=== PATIENT | male | born 1960 | race Caucasian/White ===

== ENCOUNTER 2016-09-18 08:46 | Emergency (ER) | payer OTHER ==
[~2016-09-18] VITALS: Ht 188 cm; Wt 64.0 kg
[~2016-09-18 08:46] MED LIST: ASPI81TA82 PO; CEPH500C3 PO
[2016-09-18 08:48] VITALS: BP 144/94; PULSE 97; RESP 15; TEMP 99; O2SAT 98
[2016-09-18] MEDS ORDERED: CLON0.5T PO (09:07)
--- NOTE | 2016-09-18 09:09 | PD ---
HPI Chief Complaint: Injury Time Seen by Provider: 08:57 Travel History International Travel<30 days: No Contact w/Intl Traveler<30days: No Traveled to known affect area: No History of Present Illness HPI 66-year-old male complains of right foot pain, left foot pain, right ankle pain. Patient states that he kicked an animal yesterday with the right foot. Patient states that he tripped and fell and injured his left foot. Patient states that the pain on the right foot localized to the medial aspect of the right ankle and medial aspect of the right foot and the base of the right great toe. Patient states that the pain on the left foot localized around the base of the left great toe. Patient states the pain is sharp pain. Patient denies any pain radiation. On a scale of 1-10 the pain is a 9. Patient states that he is up-to-date with TD booster. PFSH Past Medical History Hx Anticoagulant Therapy: No (Baby ASA daily) Arthritis: No Asthma: No Bipolar Disorder: Yes Depression: Yes Heart Rhythm Problems: No Cardiac Catheterization: No Cardiovascular Problems: No High Cholesterol: No Chest Pain: No Congestive Heart Failure: No COPD: No Cerebrovascular Accident: No Diabetes: No Gastrointestinal Disorders: Yes GERD: No Genitourinary: No Headaches: No Hepatitis: No Hiatal Hernia: Yes Hypertension: No Kidney Stones: No Musculoskeletal: Yes Neurologic: No Reproductive: No Respiratory: No Migraines: No Myocardial Infarction: No Renal Failure: No Seizures: No Sleep Apnea: No Ulcer: No ?: Not Past Surgical History Abdominal Surgery: Yes (Hernia) Appendectomy: No Cardiac Surgery: No Cholecystectomy: No Coronary Artery Bypass Graft: No Ear Surgery: No Endocrine Surgery: No Eye Surgery: No Genitourinary Surgery: No Gynecologic Surgery: No Joint Replacement: Yes (RIGHT KNEE SCOPE 2004 AND LEFT KNEE SCOPE 1997.) Oral Surgery: No Thoracic Surgery: No Tonsillectomy: Yes Other Surgery: Yes (HERNIA SURG AGE 8) Social History Alcohol Use: Yes (6 pack daily) Tobacco Use: Yes (1 PPD) Substance Use: No Allergies-Medications (Allergen,Severity, Reaction): Coded Allergies: Indocin (Verified Allergy, Unknown, 09/18/16) Reported Meds & Prescriptions Reported Meds & Active Scripts Active Reported Clonazepam 0.5 Mg Tab 0.5 Mg PO BID PRN Review of Systems General / Constitutional: No: Fever Eyes: No: Visual changes HENT: No: Headaches Cardiovascular: No: Chest Pain or Discomfort Respiratory: No: Shortness of Breath Gastrointestinal: No: Abdominal Pain Genitourinary: No: Dysuria Musculoskeletal: Positive: Pain Skin: No Rash Neurologic: No: Weakness Psychiatric: No: Depression Endocrine: No: Polydipsia Hematologic/Lymphatic: No: Easy Bruising Physical Exam Narrative GENERAL: Well-nourished, well-developed patient. SKIN: Focused skin assessment warm/dry. HEAD: Normocephalic. EYES: No scleral icterus. No injection or drainage. NECK: Supple, trachea midline. No JVD or lymphadenopathy. CARDIOVASCULAR: Regular rate and rhythm without murmurs, gallops, or rubs. RESPIRATORY: Breath sounds equal bilaterally. No accessory muscle use. GASTROINTESTINAL: Abdomen soft, non-tender, nondistended. MUSCULOSKELETAL: No cyanosis, or edema. BACK: Nontender without obvious deformity. No CVA tenderness. Patient has ecchymosis swelling tenderness distal aspect of first metatarsal and base of the left big toe. Patient has ecchymosis swelling tenderness medial malleolus area of right ankle, medial aspect of the right foot around the arch area, at the base of the big toe. Data Data Last Documented VS Vital Signs Date Time Temp Pulse Resp B/P Pulse Ox O2 Delivery O2 Flow Rate FiO2 09/18/16 08:48 99.0 97 15 144/94 98 Orders Ankle, Complete ([id number]) (09/18/16 09:01) Foot, Complete ([id number]) (09/18/16 09:01) Foot, Complete ([id number]) (09/18/16 09:01) MDM Medical Decision Making Medical Screen Exam Complete: Yes Emergency Medical Condition: Yes Interpretation(s) 10:02 AM. X-ray shows no acute bony injury. Differential Diagnosis Differential diagnosis including contusion, fracture, dislocation. Narrative Course 56-year-old male with right foot and right ankle and left foot injury. Mook wrap to right and left feet . Diagnosis Primary Impression: Contusion of right foot Qualified Code: S90.31XA - Contusion of right foot, initial encounter Additional Impressions: Contusion of right ankle Qualified Code: S90.01XA - Contusion of right ankle, initial encounter Contusion of left foot Qualified Code: S90.32XA - Contusion of left foot, initial encounter Patient Instructions: General Instructions Additional Instructions: Mook wrap to right foot and left foot. Ice pack as needed. Follow-up with personal physician orthopedist if persistent problem. Medications as needed for pain. Med/Other Pt SpecificInfo: Prescription(s) given Scripts Tramadol (Ultram)50 Mg Tab50 Mg PO Q6H PRN (PAIN) #20 TAB Prov:Jez Briseno MD 09/18/16 Disposition: 01 DISCHARGE HOME Condition: Stable Jez Briseno MD September 18, 2016 09:09
[2016-09-18] MEDS ORDERED: ULTR50TA5 PO (10:04)
--- NOTE | 2016-09-18 10:48 | RADHPO ---
EXAM DATE/TIME: 09/18/2016 09:12 [facility] COMPARISON: FOOT LEFT COMPLETE ([id number]), September 18, 2016, 9:21. INDICATIONS : Right ankle, 1st toe, and left 1st toe pain after kicking a solid object yesterday morning. MEDICAL HISTORY : PTSD. Hypertension. SURGICAL HISTORY : Tonsillectomy. Inguinal hernia repair. ENCOUNTER: Initial ACUITY: 2 days PAIN SCORE: 10/10 LOCATION: Right ankle. FINDINGS: 3 views right ankle. Bone alignment within normal limits. No evidence of fracture. Ankle mortise int act. Small plantar calcaneal spur. CONCLUSION: No evidence of fracture. Con Hall MD on September 18, 2016 at 10:46 Board Certified Radiologist. This report was verified electronically.
--- NOTE | 2016-09-18 10:49 | RADHPO ---
EXAM DATE/TIME: 09/18/2016 09:13 [facility] COMPARISON: No previous studies available for comparison. INDICATIONS : Right ankle, 1st toe, and left 1st toe pain after kicking a solid object yesterday morning. MEDICAL HISTORY : PTSD. Hypertension. SURGICAL HISTORY : Tonsillectomy. Inguina hernia repair, left. ENCOUNTER: Initial ACUITY: 2 days PAIN SCORE: 10/10 LOCATION: Right 1st toe. FINDINGS: 3 views of the right foot. Bone alignment within normal limits. No evidence of fracture. CONCLUSION: No evidence of fracture. Con Hall MD on September 18, 2016 at 10:47 Board Certified Radiologist. This report was verified electronically.
--- NOTE | 2016-09-18 10:50 | RADHPO ---
EXAM DATE/TIME: 09/18/2016 09:21 [facility] COMPARISON: No previous studies available for comparison. INDICATIONS : Right ankle, 1st toe, and left 1st toe pain after kicking a solid object yesterday morning. MEDICAL HISTORY : PTSD. Hypertension. SURGICAL HISTORY : Tonsillectomy. Inguina hernia repair, left. ENCOUNTER: Initial ACUITY: 2 days PAIN SCORE: 10/10 LOCATION: Left 1st toe. FINDINGS: 3 views left foot. Bone alignment within normal limits. 4 mm corticated ossicle adjacent to the media l aspect of the great toe metatarsal head indicating sequela of old trauma or arthritis. No evidence of acute fracture. Small plantar calcaneal spur. CONCLUSION: No evidence of acute fracture. Con Hall MD on September 18, 2016 at 10:48 Board Certified Radiologist. This report was verified electronically.
== END 2016-09-18 10:26 | disposition home or self-care (01) ==
LOC: PHED 08:46
DX: S90.31XA Contusion of right foot, initial encounter (principal); S90.01XA Contusion of right ankle, initial encounter; S90.112A Contusion of left great toe without damage to nail, initial encounter; F17.200 Nicotine dependence, unspecified, uncomplicated; Z79.82 Long term (current) use of aspirin; Z86.59 Personal history of other mental and behavioral disorders; Z87.19 Personal history of other diseases of the digestive system; Z87.39 Personal history of other diseases of the musculoskeletal system and connective tissue; W22.8XXA Striking against or struck by other objects, initial encounter; W01.0XXA Fall on same level from slipping, tripping and stumbling without subsequent striking against object, initial encounter
CPT/HCPCS: 73610; 73630; 99283; E0113

== ENCOUNTER 2016-11-21 10:45 | Observation (INO) | payer OTHER ==
[~2016-11-21 10:45] MED LIST changes: -ASPI81TA82 PO; -CEPH500C3 PO; +CLON0.5T PO; +ULTR50TA5 PO
[2016-11-21 10:57] VITALS: BP 175/92; PULSE 71; RESP 18; TEMP 98.4
--- NOTE | 2016-11-21 11:11 | PD ---
HPI Chief Complaint: Chest Pain Time Seen by Provider: 11:00 Travel History International Travel<30 days: No Contact w/Intl Traveler<30days: No Traveled to known affect area: No History of Present Illness HPI This is a 56-year-old male with history of tobacco use, hypertension, presents via EMS for evaluation of chest pain. Symptoms started at 1 AM. He reports an intermittent jolting type of pain on the left side of his chest which lasts for 30 seconds to 1 minute at a time. Symptoms are spontaneous with no obvious aggravating or relieving factors. He endorses some heaviness in his arms and legs as well. He reports that he had similar pain in July 2015. He was seen at [facility] and they recommended that he be admitted to the chest pain center however he declined at that time. He denies any personal history of coronary artery disease. He does have family history paternally. He denies any nausea, vomiting, shortness of breath, headache, neck pain, abdominal pain. [facility] No other complaints. He received 160 mg of aspirin prior to arrival. PFSH Past Medical History Hx Anticoagulant Therapy: No (Baby ASA daily) Arthritis: No Asthma: No Bipolar Disorder: Yes Anxiety: Yes Depression: Yes Heart Rhythm Problems: No Cardiac Catheterization: No Cardiovascular Problems: No High Cholesterol: No Chest Pain: No Congestive Heart Failure: No COPD: No Cerebrovascular Accident: No Diabetes: No Gastrointestinal Disorders: Yes GERD: No Genitourinary: No Headaches: No Hepatitis: No Hiatal Hernia: Yes Heparin Induced Thrombocytopen: No Hypertension: No Kidney Stones: No Musculoskeletal: Yes Neurologic: No Psychiatric: Yes (PTSD) Reproductive: No Respiratory: No Migraines: No Myocardial Infarction: No Renal Failure: No Seizures: No Sleep Apnea: No Ulcer: No Past Surgical History Abdominal Surgery: Yes (Hernia) Appendectomy: No Cardiac Surgery: No Cholecystectomy: No Coronary Artery Bypass Graft: No Ear Surgery: No Endocrine Surgery: No Eye Surgery: No Genitourinary Surgery: No Gynecologic Surgery: No Joint Replacement: Yes (RIGHT KNEE SCOPE 2004 AND LEFT KNEE SCOPE 1997.) Neurologic Surgery: No Oral Surgery: No Thoracic Surgery: No Tonsillectomy: Yes Other Surgery: Yes (HERNIA SURG AGE 8) Social History Alcohol Use: Yes (6 pack daily) Tobacco Use: Yes (1 PPD) Substance Use: No Allergies-Medications (Allergen,Severity, Reaction): Coded Allergies: Indocin (Verified Allergy, Unknown, 09/18/16) Reported Meds & Prescriptions Reported Meds & Active Scripts Active Reported Clonazepam 0.5 Mg Tab 0.5 Mg PO BID PRN Review of Systems Except as stated in HPI: all other systems reviewed are Neg Physical Exam Narrative GENERAL: This is a well-developed well-nourished male in no acute distress on initial examination. He did develop a jolting sensation in the left side of his chest for 30 seconds during examination which spontaneously resolved. SKIN: Warm and dry. HEAD: Atraumatic. Normocephalic. EYES: Pupils equal and round. No scleral icterus. No injection or drainage. ENT: No nasal bleeding or discharge. Mucous membranes pink and moist. NECK: Trachea midline. No JVD. CARDIOVASCULAR: Regular rate and rhythm. No murmur appreciated. RESPIRATORY: No accessory muscle use. Clear to auscultation. Breath sounds equal bilaterally. GASTROINTESTINAL: Abdomen soft, non-tender, nondistended. Hepatic and splenic margins not palpable. MUSCULOSKELETAL: No obvious deformities. No clubbing. No cyanosis. No edema. No reproducible tenderness to palpation along the chest wall. NEUROLOGICAL: Awake and alert. No obvious cranial nerve deficits. Motor grossly within normal limits. Normal speech. PSYCHIATRIC: Appropriate mood and affect; insight and judgment normal. Data Data Last Documented VS Vital Signs Date Time Temp Pulse Resp B/P Pulse Ox O2 Delivery O2 Flow Rate FiO2 11/21/16 11:21 97 Nasal Cannula 2 11/21/16 11:04 74 18 11/21/16 10:57 98.4 175/92 Orders Electrocardiogram (11/21/16 ) Basic Metabolic Panel (Bmp) (11/21/16 11:07) Ckmb (Isoenzyme) Profile (11/21/16 11:07) Complete Blood Count With Diff (11/21/16 11:07) Magnesium (Mg) (11/21/16 11:07) Prothrombin Time / Inr (Pt) (11/21/16 11:07) Act Partial Throm Time (Ptt) (11/21/16 11:07) Troponin I (11/21/16 11:07) Chest, Single Ap (11/21/16 11:07) Ecg Monitoring (11/21/16 11:07) Bilateral Bp Monitoring (11/21/16 11:07) Iv Access Insert/Monitor (11/21/16 11:07) Oximetry (11/21/16 11:07) Oxygen Administration (11/21/16 11:07) Aspirin Chew (Aspirin Chew) (11/21/16 11:15) Morphine Inj (Morphine Inj) (11/21/16 11:15) Sodium Chloride 0.9% Flush (Ns Flush) (11/21/16 11:15) Ondansetron Inj (Zofran Inj) (11/21/16 11:15) CKMB (11/21/16 11:17) CKMB% (11/21/16 11:17) Admit Order (Ed Use Only) (11/21/16 12:06) Labs Laboratory Tests Test 11/21/16 11:17 White Blood Count 6.7 TH/MM3 Red Blood Count 4.51 MIL/MM3 Hemoglobin 15.1 GM/DL Hematocrit 44.7 % Mean Corpuscular Volume 99.1 FL Mean Corpuscular Hemoglobin 33.5 PG Mean Corpuscular Hemoglobin 33.8 % Concent Red Cell Distribution Width 13.5 % Platelet Count 275 TH/MM3 Mean Platelet Volume 7.8 FL Neutrophils (%) (Auto) 75.2 % Lymphocytes (%) (Auto) 16.9 % Monocytes (%) (Auto) 7.2 % Eosinophils (%) (Auto) 0.2 % Basophils (%) (Auto) 0.5 % Neutrophils # (Auto) 5.1 TH/MM3 Lymphocytes # (Auto) 1.1 TH/MM3 Monocytes # (Auto) 0.5 TH/MM3 Eosinophils # (Auto) 0.0 TH/MM3 Basophils # (Auto) 0.0 TH/MM3 CBC Comment DIFF FINAL Differential Comment Prothrombin Time 9.8 SEC Prothromb Time International 0.9 RATIO Ratio Activated Partial 29.1 SEC Thromboplast Time Sodium Level 135 MEQ/L Potassium Level 4.2 MEQ/L Chloride Level 105 MEQ/L Carbon Dioxide Level 20.5 MEQ/L Anion Gap 10 MEQ/L Blood Urea Nitrogen 7 MG/DL Creatinine 0.78 MG/DL Estimat Glomerular Filtration 103 ML/MIN Rate Random Glucose 77 MG/DL Calcium Level 9.1 MG/DL Magnesium Level 2.3 MG/DL Total Creatine Kinase 162 U/L Troponin I LESS THAN 0.02 NG/ML MDM Medical Decision Making Medical Screen Exam Complete: Yes Emergency Medical Condition: Yes Medical Record Reviewed: Yes Interpretation(s) EKG reveals normal sinus rhythm, rate 89. T-wave inversions V1. Chest x-ray normal Differential Diagnosis Muscle spasm, costochondritis, pleurisy, pericarditis, myocarditis, pneumothorax , hemothorax, aortic dissection, ACS, PE Narrative Course 56-year-old male presents with intermittent left-sided chest pain for several hours. Plan is for basic lab work, chest x-ray, 12-lead EKG, UCG monitor and pulse oximetry. The patient was given additional 162 g of aspirin as well as 4 mg of morphine, Zofran. The patient's lab work imaging studies have been reviewed and found to be reassuring. The patient's pain is atypical however given his risk factors for cardiac disease appointment be to admit him to the chest pain center for serial cardiac enzymes and rule out purposes. Discussed with the patient who is agreeable. Procedures EKG Prior to Arrival: Yes Diagnosis Primary Impression: Chest pain Qualified Code: R07.9 - Chest pain, unspecified type Admitting Information Admitting Physician Requests: Raghu Malhotra Nov 21, 2016 11:11
[2016-11-21] MEDS ORDERED: MORPHINE SULFATE 4 MG/ML INJ IV PUSH ONE ×2 (11:15→12:45)
[2016-11-21] MEDS ORDERED: ONDANSETRON HCL 4 MG/2 ML VIAL IV PUSH ONE (11:15)
[2016-11-21] MEDS ORDERED: ASPIRIN 81 MG CHEW TAB PO ONE (11:15)
[2016-11-21] MEDS ORDERED: SODIUM CHLORIDE 0.9% FLUSH 10 ML FLUSH IVF PRN (11:15)
[2016-11-21 11:21] VITALS: O2SAT 97
--- NOTE | 2016-11-21 11:28 | RADRPT ---
EXAM DATE/TIME: 11/21/2016 11:06 [facility] COMPARISON: CHEST SINGLE AP, July 11, 2015, 13:52. INDICATIONS : Chest pain MEDICAL HISTORY : Hypertension. SURGICAL HISTORY : None. ENCOUNTER: Initial ACUITY: 1 day PAIN SCORE: 0/10 LOCATION: chest FINDINGS: The lungs are clear without infiltrate, nodule, or mass. There is no appreciable pleural effusion fo r technique. Heart and mediastinum are unremarkable. CONCLUSION: No acute cardiopulmonary disease. Donny Raymond MD on November 21, 2016 at 11:26 Board Certified Radiologist. This report was verified electronically.
[2016-11-21 11:40] LABS: AUTOMATED NEUTROPHIL # 5.1 TH/MM3 (1.8-7.7); BASOPHIL % 0.5 % (0.0-2.0); EOSINOPHIL % 0.2 % (0.0-4.0); HEMATOCRIT 44.7 % (39.0-51.0); HEMO FLAGS DIFF FINAL; LYMPH % 16.9 % (9.0-44.0); LYMPHOCYTE # 1.1 TH/MM3 (1.0-4.8); MEAN CELL VOLUME 99.1 FL (80.0-100.0); MEAN CORPUSCULAR HEMOGLOBIN 33.5 PG (27.0-34.0); MEAN CORPUSCULAR HGB CONC 33.8 % (32.0-36.0); MONO % 7.2 % (0.0-8.0); NEUT % 75.2 % (16.0-70.0); PLATELET COUNT 275 TH/MM3 (150-450); RED BLOOD COUNT 4.51 MIL/MM3 (4.50-5.90); RED CELL DISTRIBUTION WIDTH 13.5 % (11.6-17.2); WHITE BLOOD COUNT 6.7 TH/MM3 (4.0-11.0)
[2016-11-21 11:45] LABS: APTT (PATIENT) 29.1 SEC (24.3-30.1); INTERNATIONAL NORMALIZED RATIO 0.9 RATIO; PROTHROMBIN TIME - PATIENT 9.8 SEC (9.8-11.6)
[2016-11-21 11:56] LABS: CREATINE KINASE 162 U/L (39-308)
[2016-11-21 12:00] LABS: ANION GAP 10 MEQ/L (5-15); BICARBONATE 20.5 MEQ/L (21.0-32.0); BLOOD UREA NITROGEN 7 MG/DL (7-18); CHLORIDE 105 MEQ/L (98-107); GLOMERULAR FILTRATION RATE 103 ML/MIN (>89); MAGNESIUM 2.3 MG/DL (1.5-2.5); POTASSIUM 4.2 MEQ/L (3.5-5.1); SODIUM (NA) 135 MEQ/L (136-145)
[2016-11-21 12:09] LABS: CKMB 2.4 NG/ML (0.5-3.6)
[2016-11-21 12:28] VITALS: BP 163/91; PULSE 63; RESP 18; O2SAT 97
[2016-11-21 14:00] VITALS: PULSE 65
[2016-11-21] MEDS ORDERED: ACETAMINOPHEN/HYDROcodone 325 MG/7.5 MG TAB PO PRN (14:30)
[2016-11-21] MEDS ORDERED: SODIUM CHLORIDE 0.9% FLUSH 5 ML FLUSH IVF PRN (14:30)
[2016-11-21] MEDS ORDERED: ONDANSETRON HCL 4 MG/2 ML VIAL IV PRN (14:30)
[2016-11-21] MEDS ORDERED: ACETAMINOPHEN 500 MG CPLT PO PRN (14:30)
--- NOTE | 2016-11-21 14:47 | HHI.HP ---
HPI Primary Care Physician [facility] Chief Complaint CHEST PAIN History of Present Illness The 56-year-old male that presents to ED via private vehicle complaining of chest discomfort. He describes as a very intense sharp discomfort in the left lateral chest wall that began last evening. It lasts a split second. Rates as a 15/10. However it continue to recur several times over the next 5 minutes. He then went to sleep. He woke back up this morning and the same thing occurred. He would be a split second but continue to recur. He found nothing in particular to bring on the discomfort. He feels he may be a spasm. He was diaphoretic with it. No nausea or shortness of breath. Denies history of CAD. Patient does smoke. He had a stress test several years ago but upon review records had a nonischemic stress test 2009. Review of Systems General: Patient denies fevers, chills recent, and recent travel HEENT: Patient denies headache, sore throat, difficulty swallowing. Cardiovascular: Has the chest discomfort as mentioned above. Denies sensation of heart beating rapidly or irregularly. No syncope. He was diaphoretic. Respiratory: Denies shortness of breath or inspirational chest discomfort. Denies coughing wheezing or hemoptysis. GI: Patient denies nausea, vomiting, diarrhea, abdominal pain, bloody stools. Musculoskeletal: Patient denies joint pain or edema. Denies calf pain or edema. Neurovascular: Patient denies numbness, tingling, weakness in extremities. Denies headache. Endocrine: Denies polyuria and polydipsia. Hematologic: Denies easy bruising. Skin: Denies rash or itching. Past Family Social History Allergies: Coded Allergies: Indocin (Verified Allergy, Unknown, 09/18/16) Past Medical History He is being evaluated for possible hypertension. States is keeping a journal his blood pressure readings to discuss with his PCP at the [facility]. States his lipid panel is completely normal. Denies diabetes and CAD. He smokes cigarettes. Past Surgical History Noncontributory. Reported Medications Reported Meds & Active Scripts Active Reported Clonazepam 0.5 Mg Tab 0.5 Mg PO BID PRN Active Ordered Medications Current Medications Medications (Trade) Dose Ordered Sig/Erik Route Start Time Stop Time Status Last Admin (NS Flush) 2 ml UNSCH PRN IVF 11/21/16 14:30 (NS Flush) 2 ml BID IVF 11/21/16 21:00 (Tylenol) 500 mg Q4H PRN PO 11/21/16 14:30 ([place] 7.5-325 Mg) 1 tab Q4H PRN PO 11/21/16 14:30 (Zofran Inj) 4 mg Q6H PRN IV 11/21/16 14:30 Family History States that his father had a bypass in his 60s. Social History Patient smokes one pack of cigarettes a day for approximately 30 years. Has on average 12 pack of beer per day. Denies illicit drugs. Physical Exam Vital Signs Vital Signs Date Time Temp Pulse Resp B/P Pulse Ox O2 Delivery O2 Flow Rate FiO2 11/21/16 12:28 63 18 163/91 97 Nasal Cannula 2 11/21/16 11:21 97 Nasal Cannula 2 11/21/16 11:21 97 2 11/21/16 11:04 74 18 97 Room Air 11/21/16 10:57 98.4 71 18 175/92 Physical Exam GENERAL: This is a well-nourished, well-developed patient, in no apparent distress. Patient speaks in clear complete sentences. Patient is pleasant. HEENT: Head is atraumatic and normocephalic. Neck is supple without lymphadenopathy and trachea is midline. RT CAROTID BRUIT. No JVD. CARDIOVASCULAR: Regular rate and rhythm without murmurs, gallops, or rubs. RESPIRATORY: Clear to auscultation. Breath sounds equal bilaterally. No wheezes , rales, or rhonchi. Chest wall is nontender. No use of accessory muscles. GASTROINTESTINAL: Abdomen is nontender, nondistended. Abdomen soft. No obvious pulsatile mass or bruit. No CVA tenderness. Strong femoral pulses bilaterally. Normal bowel sounds in all quadrants. MUSCULOSKELETAL: Patient is moving upper and lower extremities freely. No calf tenderness or edema, no Homans sign. Strong pulses in upper and lower extremities. NEUROLOGICAL: Patient is alert and oriented. Cranial nerves 2-12 are grossly intact. No focal deficits and speech is clear. SKIN: No rash and turgor is normal. Laboratory Laboratory Tests Test 11/21/16 11:17 White Blood Count 6.7 Red Blood Count 4.51 Hemoglobin 15.1 Hematocrit 44.7 Mean Corpuscular Volume 99.1 Mean Corpuscular Hemoglobin 33.5 Mean Corpuscular Hemoglobin 33.8 Concent Red Cell Distribution Width 13.5 Platelet Count 275 Mean Platelet Volume 7.8 Neutrophils (%) (Auto) 75.2 Lymphocytes (%) (Auto) 16.9 Monocytes (%) (Auto) 7.2 Eosinophils (%) (Auto) 0.2 Basophils (%) (Auto) 0.5 Neutrophils # (Auto) 5.1 Lymphocytes # (Auto) 1.1 Monocytes # (Auto) 0.5 Eosinophils # (Auto) 0.0 Basophils # (Auto) 0.0 CBC Comment DIFF FINAL Differential Comment Prothrombin Time 9.8 Prothromb Time International 0.9 Ratio Activated Partial 29.1 Thromboplast Time Sodium Level 135 Potassium Level 4.2 Chloride Level 105 Carbon Dioxide Level 20.5 Anion Gap 10 Blood Urea Nitrogen 7 Creatinine 0.78 Estimat Glomerular Filtration 103 Rate Random Glucose 77 Calcium Level 9.1 Magnesium Level 2.3 Total Creatine Kinase 162 Creatine Kinase MB 2.4 Troponin I LESS THAN 0.02 Result Diagram: 11/21/16 1117 11/21/16 1117 Imaging Last 48 hours Impressions Chest X-Ray 11/21/16 1107 Signed Impressions: Service Date/Time: Monday, November 21, 2016 11:06 - CONCLUSION: No acute cardiopulmonary disease. Donny Raymond MD Course First 2 EKGs have sinus rhythm without significant ST segment depressions or elevations. Assessment and Plan Assessment and Plan * Atypical chest pain: Second troponin is pending. Patient is being evaluated by Dr. Nino further plan pending that evaluation. However patient will need follow-up with the [facility] for follow-up afterwards. * Tobacco abuse: Patient has been counseled on importance smoking cessation. * Alcohol abuse: Patient has been counseled on importance of decreasing alcohol intake. [facility]. Brennon López Nov 21, 2016 14:47
[2016-11-21 15:08] LABS: CREATINE KINASE 141 U/L (39-308)
[2016-11-21 15:21] LABS: CKMB 2.1 NG/ML (0.5-3.6)
[2016-11-21] MEDS ORDERED: KETOROLAC TROMETHAMINE 30 MG/ML (IVP) VIAL IVP ONE (15:30)
--- NOTE | 2016-11-21 16:10 | HHI.DCPOC ---
Discharge Care Plan Diagnosis: (1) Chest pain, atypical (2) Tobacco abuse (3) Alcohol abuse (4) Carotid artery bruit Goals to Promote Your Health * To prevent worsening of your condition and complications * To maintain your health at the optimal level Directions to Meet Your Goals Take your medications as prescribed Follow your dietary instruction Follow activity as directed Keep your appointments as scheduled Take your immunizations and boosters as scheduled If your symptoms worsen call your PCP, if no PCP go to Urgent Care Center or Emergency Room Smoking is Dangerous to Your Health. Avoid second hand smoke Call the 24-hour hour crisis hotline for domestic abuse at Brennon López Nov 21, 2016 16:10
--- NOTE | 2016-11-21 16:12 | TR ---
Date Performed: 11/21/2016 Time Performed: 15:44:09 DOCTOR: Shanw Nino DRUG LIST: CLINICAL HISTORY: REASON FOR TEST: Chest pain REASON FOR ENDING: OBSERVATION: CONCLUSION: JOSÉ MIGUEL PROTOCOL. NO CP. TEST STOPPED WHEN MAXIMUM TARGET REACHED SECONDARY TO SHORTNE SS OF BREATH.Maximum ZZ=154 % Max HR Achieved=96.0% Maximum WX=678/86 Total Exercise Time=4:30 COMMENTS: Conclusion: Normal treadmill exercise. No evidence of ischemia.
[2016-11-21] MEDS ORDERED: SODIUM CHLORIDE 0.9% FLUSH 5 ML FLUSH IVF SCH (21:00)
--- NOTE | 2016-11-23 12:22 | EKG ---
Date Performed: 11/21/2016 Time Performed: 13:57:16 PTAGE: 56 years EKG: SINUS BRADYCARDIA POSSIBLE RIGHT VENTRICULAR CONDUCTION DELAY VOLTAGE CRITERIA FOR LVH ABNO RMAL ECG Since PREVIOUS TRACING , no significant change noted PREVIOUS TRACIN11/21/2016 11.04 DOCTOR: Blanka Mir Interpretating Date/Time 11/23/2016 12:22:01
--- NOTE | 2016-11-23 12:22 | EKG ---
Date Performed: 11/21/2016 Time Performed: 11:04:56 PTAGE: 56 years EKG: Sinus rhythm POSSIBLE RIGHT VENTRICULAR CONDUCTION DELAY BORDERLINE ECG Since PREVIOUS TRACING , no significant change noted PREVIOUS TRACIN07/11/2015 13.24 DOCTOR: Blanka Mir Interpretating Date/Time 11/23/2016 12:21:48
== END 2016-11-21 16:41 | disposition home or self-care (01) ==
LOC: NEPE 10:45 → NEDA 12:07 → NEPHCDU 13:42
DX: R07.89 Other chest pain (principal); I10 Essential (primary) hypertension; R09.89 Other specified symptoms and signs involving the circulatory and respiratory systems; F17.210 Nicotine dependence, cigarettes, uncomplicated; R00.1 Bradycardia, unspecified; F10.10 Alcohol abuse, uncomplicated; F41.9 Anxiety disorder, unspecified; F31.9 Bipolar disorder, unspecified; F43.10 Post-traumatic stress disorder, unspecified; Z71.6 Tobacco abuse counseling; Z71.41 Alcohol abuse counseling and surveillance of alcoholic; Z79.82 Long term (current) use of aspirin
CPT/HCPCS: 71010; 80048; 82550; 82552; 83735; 84484; 85025; 85610; 85730; 93005; 93017; 96374; 96375; 99285; G0378; J1885; J2270; J2405

== ENCOUNTER 2016-12-15 12:30 | Emergency (ER) | payer OTHER ==
[~2016-12-15] VITALS: Ht 190.5 cm; Wt 66.5 kg
[2016-12-15 12:31] VITALS: BP 188/108; PULSE 89; RESP 18; TEMP 99.3; O2SAT 99
--- NOTE | 2016-12-15 12:40 | PD ---
Physical Exam Date Seen by Provider: Dec 15, 2016 Time Seen by Provider: 12:37 Narrative 56 YOWM HERE FOR BP EVAIL. R EYE SUBCONJUNCTIVAL HEM. VS REVIEWED PT WAITING FOR BED PLACEMENT. Data Data Last Documented VS Vital Signs Date Time Temp Pulse Resp B/P Pulse Ox O2 Delivery O2 Flow Rate FiO2 12/15/16 12:31 99.3 89 18 188/108 99 Room Air MDM Supervised Visit with SUSHIL: Stephan Isbell Dec 15, 2016 12:40
== END 2016-12-15 13:29 | disposition left against medical advice (07) ==
LOC: NED 12:30
DX: H11.31 Conjunctival hemorrhage, right eye (principal); I10 Essential (primary) hypertension
CPT/HCPCS: 99281